=== PATIENT | female | born 1950 | race Caucasian/White ===

== ENCOUNTER → 2017-12-13 | Outpatient (CLI) | payer OTHER ==
--- NOTE | 2017-12-14 12:15 | TST ---
[place] [address] TREADMILL STRESS TEST Name: STEVE DILLARD Room: [facility]#: [id number] Admission: 12/13/17 Attend Phys: Marissa White Discharge: Date of : 54 Date of Service: 12/13/172010 Report #: [id number] THIS REPORT FOR: //name// CC: Marissa Lovett NP REFERRING PROVIDER: Marissa Lovett NP. INDICATION: Palpitations and dizziness. PROCEDURE: Standard Billy protocol exercise stress test. CARDIAC RISK FACTORS: Hyperlipidemia, hypertension and family history of coronary artery disease. The patient exercised per standard Billy protocol for 6 minutes and 20 seconds. The resting blood pressure was 121/72 mmHg with a resting pulse rate of 73 beats per minute. At peak exercise, the blood pressure was 152/59 mmHg with a peak stress, heart rate of 162 beats per minute. In recovery, the blood pressure was 120/70 mmHg with a recovery pulse rate of 94 beats per minute. Exercise was stopped due to fatigue. The patient denied any significant chest discomfort with exercise. The baseline 12-lead electrocardiogram showed sinus rhythm with no significant ST or T-wave abnormalities. EKGs obtained during and post-exercise stress showed sinus rhythm and sinus tachycardia with no significant ST or T-wave changes when compared to baseline. There were no exercise-induced arrhythmias. IMPRESSION: 1. Clinical response: Nonischemic. 2. EKG response: Nonischemic. CONCLUSIONS: This standard Billy protocol exercise stress test shows no clinical or electrocardiographic evidence to suggest induced ischemia. The patient exhibited average exercise tolerance. This is a low-risk study. <ELECTRONICALLY SIGNED> By: Mino Leach MD, FACC 12/14/17 1215 10 0348 Mino Laech MD, FACC /nt
== END ==
LOC: M.CRD 10:37
DX: I10 Essential (primary) hypertension (principal); R00.2 Palpitations; R42 Dizziness and giddiness; E78.5 Hyperlipidemia, unspecified; K21.9 Gastro-esophageal reflux disease without esophagitis

== ENCOUNTER → 2019-02-24 | Outpatient (CLI) | payer OTHER | LOC: M.RAD 02-19 13:06 | DX: Z12.31 Encounter for screening mammogram for malignant neoplasm of breast (principal); M81.0 Age-related osteoporosis without current pathological fracture; Z78.0 Asymptomatic menopausal state ==

== ENCOUNTER → 2019-03-24 | Outpatient (CLI) | payer OTHER | LOC: M.MRI 11:08 | DX: M51.26 Other intervertebral disc displacement, lumbar region (principal); M48.062 Spinal stenosis, lumbar region with neurogenic claudication; M12.88 Other specific arthropathies, not elsewhere classified, other specified site; M43.24 Fusion of spine, thoracic region ==

== ENCOUNTER → 2019-05-05 | Outpatient (CLI) | payer OTHER ==
[~2019-05-05] VITALS: Ht 147.3 cm; Wt 44.5 kg
[2019-05-05 13:29] VITALS: BP 105/39
== END ==
LOC: M.INT 13:00
DX: M48.56XA Collapsed vertebra, not elsewhere classified, lumbar region, initial encounter for fracture (principal)

== ENCOUNTER → 2020-12-15 | Outpatient (CLI) | payer OTHER | LOC: M.ULTRA 08:51 | PROVIDERS: ATTEND Nurse Practitioner Family | DX: I70.0 Atherosclerosis of aorta (principal) ==

== ENCOUNTER → 2021-01-03 | Outpatient (CLI) | payer OTHER | LOC: M.CT 07:56 | PROVIDERS: ATTEND Nurse Practitioner Family | DX: Z13.6 Encounter for screening for cardiovascular disorders (principal) ==

== ENCOUNTER → 2021-01-06 | Outpatient (CLI) | payer OTHER ==
[2021-01-06 07:51] LABS: ABSOLUTE EOSINOPHILS 0.1 thou/uL (0.0-0.7); ABSOLUTE LYMPHOCYTES 1.7 thou/uL (0.8-5.3); ABSOLUTE MONOCYTES 0.3 thou/uL (0.0-1.2); ABSOLUTE NEUTROPHILS 2.7 thou/uL (1.6-8.1); EOSINOPHILS 2.4 %; HEMATOCRIT 38.2 % (37.0-47.0); HEMOGLOBIN 12.9 gm/dL (12.0-15.0); LYMPHOCYTES 34.5 %; MCH 30.7 pg (26.0-34.0); MCHC 33.8 g/dL (28.0-37.0); MCV 90.9 fL (80.0-100.0); MONOCYTES 6.8 %; MPV 7.9 fl. (7.2-11.1); NUCLEATED RBCS 0 /100WBC; PLATELET COUNT* 199 thou/uL (150-400); POLYS 55.3 %; RDW-CV 12.9 % (10.5-14.5); WBC 4.9 thou/uL (4.0-11.0)
[2021-01-06 08:05] LABS: ALBUMIN 4.1 g/dL (3.4-5.0); CALCIUM 8.9 mg/dL (8.5-10.1); CREATININE 1.1 mg/dL (0.6-1.3); POTASSIUM 3.3 mmol/L (3.5-5.1); TOTAL BILIRUBIN 0.4 mg/dL (<0.1-1.0); TOTAL PROTEIN 7.3 g/dL (6.4-8.2)
[2021-01-06 09:03] LABS: ESR (SEDRATE) 0 mm/hr (0-30)
== END ==
LOC: M.LAB 07:25
PROVIDERS: ATTEND Internal Medicine Gastroenterology
DX: R63.4 Abnormal weight loss (principal); R63.0 Anorexia

== ENCOUNTER → 2021-01-09 | Outpatient (CLI) | payer OTHER | LOC: M.NUC 07:25 | PROVIDERS: ATTEND Internal Medicine Gastroenterology | DX: R63.4 Abnormal weight loss (principal) ==

== ENCOUNTER → 2021-01-31 | Outpatient (CLI) | payer OTHER ==
[~2021-01-31] MED LIST: ALENDRONATE SOD70 MG PO; CALCIUM CA1250 MG/5 PO; CALCIUM CARBON500 MG PO; LISINOPRIL10 MG PO; NORCO5 PO; OMEPRAZOLE 20 M20 M1 PO; ZOCOR20 MG PO
== END ==
LOC: M.LAB 16:36
PROVIDERS: ATTEND Surgery
DX: Z01.812 Encounter for preprocedural laboratory examination (principal); Z20.822 Contact with and (suspected) exposure to COVID-19

== ENCOUNTER → 2021-02-03 | Day surgery (SDC) | payer OTHER ==
--- NOTE | ~2021-02-03 | OP ---
[facility] [address] [place] [address] OPERATIVE REPORT Name: STEVE DILLARD Room: [facility]#: [id number] Admission: 02/03/21 Attend Phys: Kelvin Phipps Discharge: Date of : 54 Report #: [id number] THIS REPORT FOR: cc: aMrissa Lovett Stefany RNP Patterson, Jonathan D. MD ~ DATE OF SERVICE: 02/03/2021 PREOPERATIVE DIAGNOSIS: Biliary dyskinesia. POSTOPERATIVE DIAGNOSIS: Biliary dyskinesia. OPERATION: Laparoscopic cholecystectomy. SURGEON: Kelvin Phipps MD ANESTHESIA: General. ESTIMATED BLOOD LOSS: Minimal. SPECIMEN: Gallbladder. DESCRIPTION OF PROCEDURE: After informed consent was obtained, the patient was brought to the operating room and placed supine. SCDs were placed and working, preoperative antibiotics were administered, general anesthesia was induced. The abdomen was prepped and draped in the usual sterile fashion. A 10 mm incision was made below the umbilicus. Fascia was incised and a trocar was placed. Pneumoperitoneum was established. Three right upper quadrant 5 mm ports were placed. Gallbladder was grasped at the fundus and retracted cephalad. Infundibulum was grasped and retracted laterally. I dissected out the cystic duct and cystic artery. The cystic plate was fully identified. The cystic duct and artery were clipped and ligated leaving 2 clips on the remaining duct and one on the remaining artery. Gallbladder was then taken off the liver bed with electrocautery. It was placed into an Endopouch and removed. The fascia was then closed with a [id number]-fd-soyet 0 Vicryl. Skin was closed with 4-0 Monocryl. Incisions were dressed with Steri-Strips. COMPLICATIONS: None. DISPOSITION: The patient was taken to recovery in satisfactory condition. By: [id number] 1931Kelvin Phipps MD /nt
[2021-02-03 11:00] LABS: HEMATOCRIT 37.9 % (37.0-47.0); HEMOGLOBIN 12.7 gm/dL (12.0-15.0); MCHC 33.6 g/dL (28.0-37.0); MCV 92.2 fL (80.0-100.0); MPV 7.5 fl. (7.2-11.1); RBC 4.11 mil/uL (4.20-5.00); RDW-CV 13.2 % (10.5-14.5); WBC 6.4 thou/uL (4.0-11.0)
[2021-02-03 11:08] LABS: CALCIUM 9.2 mg/dL (8.5-10.1); POTASSIUM 3.5 mmol/L (3.5-5.1)
[2021-02-03 11:13] LABS: ALBUMIN 3.5 g/dL (3.4-5.0); TOTAL BILIRUBIN 0.3 mg/dL (<0.1-1.0); TOTAL PROTEIN 7.9 g/dL (6.4-8.2)
--- NOTE | 2021-02-07 11:07 | PATH ---
[facility] [address] [place] [address] PATHOLOGY RPT PROCEDURE Name: NISHANTSTEVE S Room: [facility]#: [id number] Admission: 02/03/21 Date of : 54 Discharge: Report #: [id number] Path Case #: [id number] [facility] Accession Number: [id number] . 01 Material submitted: . gallbladder - GALLBLADDER AND CONTENTS . 01 Clinical history: . LAPAROSCOPIC CHOLECYSTECTOMY CALCULUS OF GALLBLADDER . 02 Diagnosis: Gallbladder and contents: - Chronic cholecystitis with mural diverticula and cholelithiasis. (BAUTISTA:eden; 02/06/2021) [facility] 02/06/2021 1608 Local . 02 Electronically signed: . Thien Schmidt MD, Pathologist NPI- [id number] . 01 Gross description: . Fixative: Formalin Labeled: Gallbladder and contents Specimen received: Intact cholecystectomy specimen Dimensions: 7.2 x 4.1 x 3.2 cm Serosa: Parker-green and smooth Lymph node: None identified Mucosa: Dark green and velvety Average wall thickness: 0.1 cm Calculi: Yes, multiple black ovoid calculi are present within the gallbladder measuring in aggregate 1.0 x 1.0 x 0.3 cm and ranging from 0.1-0.3 cm in greatest dimension Abnormalities: Within the gallbladder body/neck is a firm area measuring 1.7 x 1.5 x 0.3 cm, which is located 1.6 cm to the cystic duct margin and 1.2 cm to the closest hepatic bed (inked black) A1- [employer] body, fundus, and the cystic duct margin A2-A3 entire firm area and closest inked hepatic bed ([facility]; 02/04/2021) [facility] 02/04/2021 0909 Local . 02 Pathologist provided ICD-10: K80.10 . 02 CPT . 798291 Specimen Comment: A courtesy copy of this report has been sent to [phone] Specimen Comment: Report sent to Performed at: [address] [place] [address] PATHOLOGY RPT PROCEDURE Name: STEVE DILLARD Room: [facility]#: [id number] Admission: 02/03/21 Date of : 54 Discharge: Report #: [id number] Path Case #: [id number] [facility] [address], [place], [place] [id number] MD Henry Curry MD Phone: [phone] Performed at: 02 [facility] [address], [place], [place] [id number] MD Thien Schmidt MD Phone: [phone]
== END | disposition home or self-care (01) ==
LOC: M.SUR 05:35
PROVIDERS: Anesthesiology; ATTEND Surgery
DX: K80.20 Calculus of gallbladder without cholecystitis without obstruction (principal); Z79.899 Other long term (current) drug therapy; Z98.890 Other specified postprocedural states

== ENCOUNTER → 2021-04-06 | Outpatient (CLI) | payer OTHER | LOC: M.RAD 03-28 16:21 | PROVIDERS: ATTEND Nurse Practitioner Family | DX: Z12.31 Encounter for screening mammogram for malignant neoplasm of breast (principal); M81.0 Age-related osteoporosis without current pathological fracture; N64.89 Other specified disorders of breast ==